=== PATIENT | male | born 1965 | race African-American/Black ===

== ENCOUNTER 2019-03-04 13:16 | Day surgery (SDC) | payer OTHER ==
--- NOTE | 2019-03-04 13:25 | PDOC ---
Rapid Medical Evaluation Time Seen by Provider: 03/04/19 13:19 Medical Evaluation: 03/04/19 13:21 I have performed a brief in-person evaluation of this patient. The patient presents with a chief complaint of: ESRD on HD (M/W/F), was unable to get HD this am 2 ? clotted LUE graft Renal doc: Dr Soria ([place]), gets HD at [address] [place] [address] Pertinent physical exam findings:Stable, pedro well I have ordered the following:labs The patient will proceed to the ED for further evaluation. Discharge Disposition - Diagnosis AV graft malfunction Qualifiers: Encounter type: initial encounter Qualified Code(s): T82.590A - Other mechanical complication of surgically created arteriovenous fistula, initial encounter - Referrals - Patient Instructions - Post Discharge Activity
--- NOTE | 2019-03-04 14:31 | HP ---
<Bijal Rodriguez - Last Filed: 03/04/19 16:08> Admitting History and Physical - Primary Care Physician PCP: Anthony Hunt - Admission Chief Complaint: clotted Left AVF History of Present Illness: 53yo male with ESRD on HD (M,W,F) presents to the ED for evaluation of his left UE clotted AVF. The patient reports he was unable to undergo dialysis at his last session as a result of low flow. He presented to Dr Burns's office today where he underwent a procedure to improve the flow, however, this was unsuccessful and subsequently he was sent to the ED for admission and surgery later today. The patient states he follows with his PCP on a regular basis and denies any recent injuries to the left arm. He denies any CP, SOB, N/V /D, fever or chills. He has been NPO since 10:30 last night. History Source: Patient Limitations to Obtaining History: No Limitations - Past Medical History SHIRT MAKER: No: Alzheimer's, CVA, Dementia, Migraine, Multiple Sclerosis, Peripheral Neuropathy, Parkinson's, Seizure, Syncope, TIA, Vertigo, Other Cardiovascular: Yes: HTN Pulmonary: No: Asthma, Bronchitis, Cancer, COPD, O2 Dependent, Pneumonia, Previously Intubated, Pulmonary Embolus, Pulmonary Fibrosis, Sleep Apnea, Other Gastrointestinal: No: Ascites, Cancer, Constipation, Crohn's Disease, Diverticulitis, Diverticulosis, Esophageal Varices, Gastritis, GERD, GI Bleed, Hemorrhoids, Hiatal Hernia, Inflamatory Bowel Disease, Irritable Bowel Disease, Pancreatitis, Peptic Ulcer Disease, Ulcerative Colitis, Other Hepatobiliary: No: Cirrhosis, Cholelithiasis, Cholecystitis, Choledocholithiasis , Hepatitis A, Hepatitis B, Hepatitis C, Other Renal/: Yes: Renal Failure (on HD (M,W,F)) Heme/Onc: No: Anemia, B12 Deficiency, Bleeding Disorder, Cancer, Current Chemotherapy, Current Radiation Therapy, Hemochromatosis, Hypercoaguable State, Myeloproliferative Synd, Sickle Cell Disease, Sickle Cell Trait, Thrombocytopenia, Other - Smoking History Smoking history: Never smoked - Alcohol/Substance Use Hx Alcohol Use: No Home Medications - Allergies Allergies/Adverse Reactions: Allergies Allergy/AdvReac Type Severity Reaction Status Date / Time No Known Allergies Allergy Unverified 03/04/19 14:43 - Home Medications Home Medications: Ambulatory Orders Amlodipine Besylate 10 mg PO DAILY 03/04/19 Carvedilol 12.5 mg PO DAILY 03/04/19 Furosemide 60 mg PO DAILY 03/04/19 Isosorbide Mononitrate [Isosorbide Mononitrate ER] 30 mg PO DAILY 03/04/19 Sevelamer Carbonate [Renvela] 800 mg NR TID 03/04/19 Review of Systems - Review of Systems Constitutional: reports: No Symptoms Eyes: reports: Blurred Vision, Other (hx of Right retinal detatchment, hx of cataracts) HENT: reports: No Symptoms Neck: reports: No Symptoms Cardiovascular: reports: No Symptoms Respiratory: reports: No Symptoms Gastrointestinal: reports: No Symptoms Genitourinary: reports: No Symptoms Breasts: reports: No Symptoms Reported Musculoskeletal: reports: No Symptoms Integumentary: reports: No Symptoms Neurological: reports: No Symptoms Endocrine: reports: Other (NIDDM-diet controlled) Hematology/Lymphatic: reports: No Symptoms Psychiatric: reports: No Symptoms Pain Intensity: 2 Physical Examination Vital Signs: Vital Signs Temperature 97.5 F L 03/04/19 13:22 Pulse Rate 76 03/04/19 13:22 Respiratory Rate 20 03/04/19 13:22 Blood Pressure 155/105 H 03/04/19 13:22 O2 Sat by Pulse Oximetry (%) 100 03/04/19 13:22 Constitutional: Yes: Well Nourished, No Distress, Calm Eyes: Yes: Sclera Icterus HENT: Yes: Atraumatic, Normocephalic Neck: Yes: Trachea Midline Cardiovascular: Yes: Regular Rate and Rhythm, S1, S2 Respiratory: Yes: CTA Bilaterally Gastrointestinal: Yes: Soft ...Rectal Exam: Yes: Deferred Renal/: Yes: WNL Breast(s): Yes: WNL Musculoskeletal: Yes: WNL (left UE AVF at volar forearm, with well healed scars , palpable thrill- diminished proximally, no bruit, +2 radial and ulnar pulses, arm and hand well perfused and warm to touch, Full ROM at left elbow, wrist and fingers) Edema: No Peripheral Pulses WNL: Yes Peripheral Pulses: Left Radial: 2+, Left Doralis Pedis: 2+ Integumentary: Yes: WNL Neurological: Yes: Alert, Oriented ...Motor Strength: LUE Psychiatric: Yes: Alert, Oriented Imaging - Results EKG: Pending Problem List - Problems (1) AV graft malfunction Assessment/Plan: 53yo male with clotted Left AVF. Plan for OR today with Dr Burns for left UE AVF revision/thrombectomy. 1) NPO for OR today 2) f/u pre-op labs, EKG 3) T&S Evaluation and plan discussed with Dr Burns Code(s): T82.590A - [facility] COMPL OF SURGICALLY CREATED ARTERIOVENOUS FISTULA, INIT Qualifiers: Encounter type: initial encounter Qualified Code(s): T82.590A - Other mechanical complication of surgically created arteriovenous fistula, initial encounter Visit type - Emergency Visit Emergency Visit: Yes Care time: The patient presented to the Emergency Department on the above date and was hospitalized for further evaluation of their emergent condition. - New Patient This patient is new to me today: Yes Date on this admission: 03/04/19 - Critical Care Critical Care patient: No <Bryce Burns - Last Filed: 03/05/19 12:25> Physical Examination Vital Signs: Vital Signs Temperature 98.7 F 03/05/19 11:00 Pulse Rate 92 H 03/05/19 11:35 Respiratory Rate 18 03/05/19 11:35 Blood Pressure 180/102 H 03/05/19 11:35 O2 Sat by Pulse Oximetry (%) 100 03/05/19 03:50 Labs: CBC, BMP 03/04/19 15:05 03/05/19 11:13 Assessment/Plan Partial thrombosis of lef arm fistula. Office venoplasty of occluded outflow venous drainage with dislodgment of clot into vein. Plan thrombectomy and revision of venous outflow.
--- NOTE | 2019-03-04 14:40 | PDOC ---
History of Present Illness - General Chief Complaint: Dialysis Shunt Problem Stated Complaint: SICK Time Seen by Provider: 03/04/19 13:19 History Source: Patient Exam Limitations: No Limitations - History of Present Illness Initial Comments: 53 yo M history ESRD on HD MWF presents to ED for clotted AVF to L forearm. He was unable to get dialysis as a result. Dr. Burns attempted to fix it in the office today, but was unsuccessful. Sent by Dr. Burns for OR to repair. HD has been rescheduled for tomorrow. He denies SOB, leg swelling. Last ate last night. Past History - Past Medical History Allergies/Adverse Reactions: Allergies Allergy/AdvReac Type Severity Reaction Status Date / Time No Known Allergies Allergy Unverified 03/04/19 14:43 Cancer: No Cardiac Disorders: No COPD: No CHF: No Diabetes: Yes (NIDDM) Dialysis: Yes Disorders: Yes (ESRD) HTN: Yes - Suicide/Smoking/Psychosocial Hx Smoking History: Never smoked Information on smoking cessation initiated: No Hx Alcohol Use: No Drug/Substance Use Hx: No Review of Systems - Review of Systems Able to Perform ROS?: Yes Comments:: GENERAL/CONSTITUTIONAL: No fever or chills. No weakness. HEAD, EYES, EARS, NOSE AND THROAT: No change in vision. No ear pain or discharge. No sore throat. CARDIOVASCULAR: No chest pain or shortness of breath. RESPIRATORY: No cough, wheezing, or hemoptysis. GASTROINTESTINAL: No nausea, vomiting, diarrhea or constipation. GENITOURINARY: No dysuria, frequency, or change in urination. MUSCULOSKELETAL: No joint or muscle swelling or pain. No neck or back pain. SKIN: No rash. NEUROLOGIC: No headache, vertigo, loss of consciousness, or change in strength/ sensation. ENDOCRINE: No increased thirst. No abnormal weight change. HEMATOLOGIC/LYMPHATIC: No anemia, easy bleeding, or history of blood clots. ALLERGIC/IMMUNOLOGIC: No hives or skin allergy. *Physical Exam - Vital Signs Last Vital Signs Temp Pulse Resp BP Pulse Ox 97.5 F L 76 20 155/105 H 100 03/04/19 13:22 03/04/19 13:22 03/04/19 13:22 03/04/19 13:22 03/04/19 13:22 - Physical Exam Comments: GENERAL: Awake, alert, and fully oriented, in no acute distress HEAD: No signs of trauma EYES: PERRLA, EOMI, sclera anicteric, conjunctiva clear ENT: Auricles normal inspection, hearing grossly normal, nares patent, oropharynx clear without exudates. Moist mucosa NECK: Normal ROM, supple, no lymphadenopathy, JVD, or masses LUNGS: Breath sounds equal, clear to auscultation bilaterally. No wheezes, and no crackles HEART: Regular rate and rhythm, normal S1 and S2, no murmurs, rubs or gallops ABDOMEN: Soft, nontender, normoactive bowel sounds. No guarding, no rebound. No masses EXTREMITIES: L forearm AV graft +thrill, no bruit appreciated. Remainder of extremities with normal range of motion, no edema. No clubbing or cyanosis. No cords, erythema, or tenderness NEUROLOGICAL: Cranial nerves II through XII grossly intact. Normal speech, normal gait. Motor and sensation intact SKIN: Warm, dry, normal turgor, no rashes or lesions noted. Heart Score/ECG Review - ECG Impressions Comment:: EKG read 14:20- NSR 75 bpm, +inv T waves I, aVL. +LVH. Medical Decision Making - Medical Decision Making 03/04/19 14:[address] Burns for admission. Preop labs ordered. Will keep patient NPO. *DC/Admit/Observation/Transfer Diagnosis at time of Disposition: AV graft malfunction Qualifiers: Encounter type: initial encounter Qualified Code(s): T82.590A - Other mechanical complication of surgically created arteriovenous fistula, initial encounter - Discharge Dispostion Condition at time of disposition: Stable Decision to Admit order: Yes - Referrals Referrals: Anthony Hunt [Primary Care Provider] - - Patient Instructions - Post Discharge Activity
[2019-03-04 15:20] LABS: BASO % 1.2 % (0-2.0); EOS % 2.6 % (0-4.5); HEMATOCRIT 39.4 % (35.4-49); HEMOGLOBIN 13.3 GM/dL (11.7-16.9); LYMPH % 27.7 % (8-40); MCH 31.6 pg (25.7-33.7); MCHC 33.9 g/dl (32.0-35.9); MEAN CELL VOLUME 93.3 fl (80-96); MEAN PLT VOLUME 8.5 fl (7.5-11.1); NEUT % 61.5 % (42.8-82.8); PLATELET COUNT 267 K/MM3 (134-434); RBC 4.23 M/mm3 (4.00-5.60); RDW 15.6 % (11.9-15.9); WHITE BLOOD COUNT 7.5 K/mm3 (4.0-10.0)
[2019-03-04 15:32] LABS: INR 0.94 (0.83-1.09); PROTHROMBIN TIME (PATIENT) 11.1 SEC (9.7-13.0)
[2019-03-04 15:58] LABS: ALBUMIN 3.8 g/dl (3.4-5.0); BILIRUBIN,TOTAL 0.4 mg/dL (0.2-1); BLOOD UREA NITROGEN 40.9 mg/dL (7-18); CALCIUM 9.6 mg/dL (8.5-10.1); POTASSIUM 5.2 mmol/L (3.5-5.1); TOT PROT 7.9 g/dl (6.4-8.2)
[2019-03-04 16:28] LABS: CREATININE 8.9 mg/dL (0.55-1.3)
[2019-03-04 18:08] VITALS: BMI 25.4
[2019-03-04] MEDS ORDERED: METOPROLOL TARTRATE 5 MG/5 ML VIAL IVPB ONE ×2 (18:27→22:47)
[2019-03-04] MEDS ORDERED: LIDOCAINE HCL 1%, 10 MG/ML (20ML VIAL) ONE (19:30)
[2019-03-04] MEDS ORDERED: PAPAVERINE HCL 30 MG/1 ML 10 ML VIAL NR ONE (19:30)
[2019-03-04] MEDS ORDERED: HEPARIN NA (PORCINE) 5,000 UNITS/ML 1ML VIAL ONE (19:30)
[2019-03-04] MEDS ORDERED: ONDANSETRON 4 MG/2 ML VIAL IVPUSH PRN ×2 (19:50→22:47)
[2019-03-04] MEDS ORDERED: oxyCODONE HCL 5 MG TABLET PO PRN ×4 (19:50→22:47)
[2019-03-04] MEDS ORDERED: SODIUM CHLORIDE 1,000 ML IV SCH ×2 (20:00→22:47)
[2019-03-04] MEDS ORDERED: PROPOFOL 20 ML ONE ×3 (20:02→21:52)
[2019-03-04] MEDS ORDERED: MIDAZOLAM HCL 2 MG/2 ML SINGLE DOSE VIAL ONE (20:02)
[2019-03-04] MEDS ORDERED: LIDOCAINE HCL/PF 2% SDV 5ML VIAL ONE (20:02)
[2019-03-04] MEDS ORDERED: LIDOCAINE HCL 1%, 10 MG/ML (50 mL VIAL) IJ ONE (20:21)
[2019-03-04] MEDS ORDERED: POVIDONE-IODINE OINTMENT 10% - 28.4 GM TUBE ONE (21:28)
--- NOTE | 2019-03-04 22:06 | OP ---
Operative Note - Note: Operative Date: 03/04/19 Pre-Operative Diagnosis: Thrombosed AV fistula Operation: Revision AV fistula with thrombectomy left arm Findings: Cephalic vein fistula with occluded outflow in proximal forearm. Thrombus in fistula with partial occlusion. Patent brachial vein Post-Operative Diagnosis: Same as Pre-op Surgeon: Bryce Burns Anesthesiologist/RECREATION THERAPY TEACHER: Staci Serrato Anesthesia: Fractional Specimens Removed: Thrombus Estimated Blood Loss (mls): 30
[2019-03-05] MEDS ORDERED: SODIUM CHLORIDE 250 ML IV PRN (10:01)
[2019-03-05] MEDS ORDERED: HEPARIN NA (PORCINE) 5,000 UNITS/ML 1ML VIAL IVPUSH ONE (10:01)
[2019-03-05 11:40] LABS: BLOOD UREA NITROGEN 46.5 mg/dL (7-18); POTASSIUM 4.1 mmol/L (3.5-5.1)
[2019-03-05 11:42] LABS: CREATININE 9.5 mg/dL (0.55-1.3)
[2019-03-05] MEDS: HEPARIN NA (PORCINE) 5,000 UNITS/ML 1ML VIAL IVPUSH SCH ×3 (12:05→14:08)
--- NOTE | 2019-03-05 12:23 | PN ---
Progress Note (short form) - Note Progress Note: ON HD at 350 cc/min flow No problems No arm swelling OK for discharge home.
--- NOTE | 2019-03-05 12:33 | CONSULT ---
Consult - text type - Consultation Consultation Note: Renal Consult for ESRD on HD This is a 53 year old gentleman with history of ESRD on HD, Hypertension, DM who presented with non-functioning AVF. S/p Venoplast and vein anastamosis by vascular surgery yesterday. Last outpatient dialysis was Thursday. Feels well. denies any CP, Abd pain, SOB, N/V/D. AVF functioning well on dialysis today. PMhx: as above Allergies: NKDA Family Hx: NC Social Hx: No T/A/D ROS: as per HPI, all other pertinent ros negative Home Medications Medication Instructions Recorded Amlodipine Besylate 10 mg PO DAILY 03/04/19 Carvedilol 12.5 mg PO DAILY 03/04/19 Furosemide 60 mg PO DAILY 03/04/19 Isosorbide Mononitrate [Isosorbide 30 mg PO DAILY 03/04/19 Mononitrate ER] Sevelamer Carbonate [Renvela] 800 mg NR TID 03/04/19 Vital Signs Temperature 98.7 F 03/05/19 11:00 Pulse Rate 92 H 03/05/19 11:35 Respiratory Rate 18 03/05/19 11:35 Blood Pressure 180/102 H 03/05/19 11:35 O2 Sat by Pulse Oximetry (%) 100 03/05/19 03:50 Intake & Output 03/02/19 03/03/19 03/04/19 03/05/19 23:59 23:59 23:59 23:59 Intake Total 400 Output Total 20 Balance 380 Weight 80.422 kg NAD awake and alert RRR CTA soft NT/ND Noo LE edema left arm AVF CBC, BMP 03/04/19 15:05 03/05/19 11:13 Current Medications Fentanyl (Sublimaze Injection -) 50 mcg IVPUSH [id number] PRN PRN Reason: PAIN-PACU ORDER X 4 DOSES ONLY Sodium Chloride (Normal Saline -) 250 mls @ 3,000 mls/hr IV PRN PRN PRN Reason: Hypotension during Dialysis Stop: 03/06/19 10:01 Ondansetron HCl (Zofran Injection) 4 mg IVPUSH Q6H PRN PRN Reason: NAUSEA AND/OR VOMITING Oxycodone HCl (Roxicodone -) 5 mg PO Q4H PRN PRN Reason: PAIN LEVEL 1-5 Stop: 03/05/19 19:49 Oxycodone HCl (Roxicodone -) 10 mg PO Q4H PRN PRN Reason: PAIN LEVEL 6-10 Stop: 03/05/19 19:49 53 year old gentleman with history of ESRD on HD, Hypertension , DM who presented with non-functioning AVF. #ESRD on HD #Non-functiong AVF #Hypertension #DM not on meds tolerating dialysis well this afternoon via surgically repaired AVF. Would give antihypertensives after dialysis. Can be discharged after treatment and resume regular MWF HD schedule as outpatient Thank you Yordy Yates DO
[2019-03-05] MEDS ORDERED: CARVEDILOL 12.5 MG TABLET (FP) PO SCH (12:45)
[2019-03-05] MEDS ORDERED: amLODIPine BESYLATE 10 MG TABLET (FP) PO SCH (12:45)
[2019-03-05 16:10] VITALS: BP 142/90; PULSE 98; TEMP 98.8
--- NOTE | 2019-03-05 16:47 | OP ---
DATE OF OPERATION: 03/04/2019 SURGEON: Bryce Burns MD PROCEDURE PERFORMED: Revision of left arm arteriovenous fistula with thrombectomy. PREOPERATIVE DIAGNOSIS: Thrombosis and complication of left arm arteriovenous fistula. POSTOPERATIVE DIAGNOSIS: Thrombosis and complication of left arm arteriovenous fistula. ANESTHESIA: Fractional. ANESTHESIOLOGIST: Staci Serrato MD OPERATIVE FINDINGS: The radiocephalic fistula was patent distally. The venous outflow in the proximal forearm was occluded, with only collateral flow to the deep veins. There was thrombus within the fistula as well. OPERATIVE PROCEDURE: Following routine patient identification, with site and side verification, intravenous sedation was established. The left arm was prepped with ChloraPrep. A time-out was performed. Lidocaine 1% was infiltrated in the skin over the proximal aspect of the patent section of the fistula in the forearm. A longitudinal skin incision was made and carried down through the subcutaneous tissues using cautery for hemostasis. The vein was mobilized and secured with a vessel loop. Small side branches were ligated. The deep branches were dissected down through the deep fascia of the arm. The proximal outflow vein was then exposed by extension of the proximal portion of the incision. The vein was largely thrombosed. It was ligated proximally. The wound was deepened in the proximal aspect until the brachial artery was identified and the adjacent brachial vein was seen, which appeared to be of adequate diameter for the venous outflow. This was carefully dissected and the side branches were ligated and divided. All branches of the deep section of the fistula were then divided, and this deep branch was used for the anastomosis. The fistula was occluded distally with a clamp and amputated off the deep vein. Thrombus within this section of the vein was removed directly, and a number 4 Julianne catheter was passed proximally, with removal of a small amount of additional thrombus. There was good inflow. The vein was filled with heparin solution and was reoccluded with the clamp. The brachial vein was then opened with a longitudinal venotomy measuring approximately 1 cm. The vein was flushed easily with heparin solution. The 2 veins were then anastomosed in an end-to-side fashion using a running suture of 6-0 Prolene. Prior to completion of the suture line, the fistula was again allowed to flush. During the procedure, the patient received 3000 units of heparin intravenously. The suture line was completed, and the vessels were released. There was good flow through the anastomosis. Bleeding from the suture line was controlled with Surgicel. The wound was then irrigated and closed with interrupted sutures of 3-0 Vicryl and skin ariela. Sterile dressings were applied, and the patient was taken to the recovery room in stable condition. Gricel VAZQUEZ/[id number]
--- NOTE | 2019-03-06 00:05 | EKG ---
Test Reason : Blood Pressure : / mmHG Vent. Rate : 087 BPM Atrial Rate : 087 BPM P-R Int : 176 ms QRS Dur : 086 ms QT Int : 390 ms P-R-T Axes : 050 -41 101 degrees QTc Int : 469 ms NORMAL SINUS RHYTHM LEFT AXIS DEVIATION INFERIOR INFARCT , AGE UNDETERMINED ABNORMAL ECG WHEN COMPARED WITH ECG OF 04-MAR-2019 13:25, NO SIGNIFICANT CHANGE WAS FOUND Confirmed by CLAU VALDEZ, SRIRAM ([id number]) on 03/06/2019 12:05:25 AM Referred By: DR. SNYDER Confirmed By:SRIRAM OLGUIN MD
--- NOTE | 2019-03-06 00:12 | EKG ---
Test Reason : Blood Pressure : / mmHG Vent. Rate : 075 BPM Atrial Rate : 075 BPM P-R Int : 172 ms QRS Dur : 088 ms QT Int : 418 ms P-R-T Axes : 051 -37 089 degrees QTc Int : 466 ms NORMAL SINUS RHYTHM POSSIBLE LEFT ATRIAL ENLARGEMENT LEFT AXIS DEVIATION LEFT VENTRICULAR HYPERTROPHY ABNORMAL ECG NO PREVIOUS ECGS AVAILABLE Confirmed by SRIRAM OLGUIN MD ([id number]) on 03/06/2019 12:12:05 AM Referred By: Confirmed By:SRIRAM OLGUIN MD
== END 2019-03-05 16:30 | disposition home or self-care (01) ==
LOC: JOR 13:16 → JASUSAT 14:40 → J5S 17:45 → JASUSAT 17:45 → J5S 18:06 → JASUSAT 03-05 16:30
PROVIDERS: ATTEND Surgery
PROC: 03180ZD Bypass Left Brachial Artery to Upper Arm Vein, Open Approach (ICD-10-PCS; 2019-03-04)
PROC: 03CC3ZZ Extirpation of Matter from Left Radial Artery, Percutaneous Approach (ICD-10-PCS; principal; 2019-03-04 17:45)
DX: T82.868A Thrombosis due to vascular prosthetic devices, implants and grafts, initial encounter (principal); I12.0 Hypertensive chronic kidney disease with stage 5 chronic kidney disease or end stage renal disease; E13.22 Other specified diabetes mellitus with diabetic chronic kidney disease; N18.6 End stage renal disease; Z99.2 Dependence on renal dialysis
CPT/HCPCS: 36415; 80048; 80053; 85025; 85610; 86803; 86850; 86900; 86901; 87340; 93005; 93010; 94760; 99284-25; J1644

== ENCOUNTER 2019-03-11 10:09 | Day surgery (SDC) | payer OTHER ==
[2019-03-11 10:15] VITALS: BMI 26.4
[2019-03-11 11:41] LABS: BASO % 1.6 % (0-2.0); EOS % 2.2 % (0-4.5); HEMATOCRIT 33.8 % (35.4-49); HEMOGLOBIN 11.6 GM/dL (11.7-16.9); MCH 31.5 pg (25.7-33.7); MCHC 34.4 g/dl (32.0-35.9); MEAN CELL VOLUME 91.8 fl (80-96); MEAN PLT VOLUME 8.5 fl (7.5-11.1); MONO % 9.1 % (3.8-10.2); NEUT % 63.1 % (42.8-82.8); PLATELET COUNT 268 K/MM3 (134-434); RBC 3.69 M/mm3 (4.00-5.60); RDW 15.1 % (11.9-15.9); WHITE BLOOD COUNT 8.7 K/mm3 (4.0-10.0)
--- NOTE | 2019-03-11 11:46 | PDOC ---
Attending Attestation - Resident Resident Name: Yuni Adams - ED Attending Attestation I have performed the following: I have examined & evaluated the patient, The case was reviewed & discussed with the resident, I agree w/resident's findings & plan, Exceptions are as noted - HPI HPI: 03/11/19 12:33 53 year old male with past medical history of HTN, DM, ESRD on M/W/F dialysis sent from dialysis clinic for clogged fistula on LUE. Recently had a revision about 6 days ago. Two days ago, pt had a normal session of dialysis. Today, attempted to dialyze the patient, but unable to do so. Pt has no complaints at this time. Pt's surgeon is Dr. Castro. - Physicial Exam PE: 03/11/19 12:40 GENERAL: Awake, alert, and fully oriented, in no acute distress HEAD: No signs of trauma EYES: EOMI, sclera anicteric, conjunctiva clear ENT: Auricles normal inspection, hearing grossly normal, nares patent NECK: Normal ROM, supple EXTREMITIES: Normal range of motion, no edema. LUE: Suraj noted in well healing surgical site in LUE. AV fisulta with no palpable thrill. NEUROLOGICAL: Cranial nerves II through XII grossly intact. Normal speech, normal gait SKIN: Warm, Dry, normal turgor, no rashes or lesions noted. - Medical Decision Making 03/11/19 12:41 Vital Signs Temp Pulse Resp BP Pulse Ox 97.6 F 86 16 165/100 100 03/11/19 10:13 03/11/19 10:13 03/11/19 10:13 03/11/19 10:13 03/11/19 10:13 Impression: clotted AV fistula. Dr. Adams had consulted Dr. Jerome. Admit for AV fistula repair. Heart Score/ECG Review #1 ECG reviewed & interpreted by me at: 11:30 03/11/19 11:45 NSR 86, no std/edin, left axis deviation, TWI aVL, no std/edin, QTC 476 msec
[2019-03-11 11:55] LABS: INR 1.01 (0.83-1.09); PROTHROMBIN TIME (PATIENT) 11.9 SEC (9.7-13.0)
--- NOTE | 2019-03-11 11:58 | PDOC ---
History of Present Illness - General Chief Complaint: Dialysis Shunt Problem Stated Complaint: SENT BY PCP Time Seen by Provider: 03/11/19 11:11 - History of Present Illness Initial Comments: Alonso iSngh is a 53yo man with a PMH of HTN, DM, ESRD on HD (MWF) who presents with a clotted LUE fistula today; he was seen with the same complaint last week. He reports that he had the fistula revised last Thursday, and it was successfully used for dialysis on Thursday and Thursday. Today, the dialysis center was unabel to access the fistula. Mr Singh also reports that it feels hard, which it did not previously. He is not sure whether it was similarly firm yesterday as he did not check it. Mr Singh otherwise denies any complaints including changes in medication, fevers, drainage or bleeding from his surgical site, numbness or tingling in his fingers, or any other recent problems. Past History - Past Medical History Allergies/Adverse Reactions: Allergies Allergy/AdvReac Type Severity Reaction Status Date / Time No Known Allergies Allergy Verified 03/11/19 10:15 Home Medications: Ambulatory Orders Amlodipine Besylate 10 mg PO DAILY 03/04/19 Carvedilol 12.5 mg PO DAILY 03/04/19 Furosemide 60 mg PO DAILY 03/04/19 Isosorbide Mononitrate [Isosorbide Mononitrate ER] 30 mg PO DAILY 03/04/19 Sevelamer Carbonate [Renvela] 800 mg NR TID 03/04/19 Anemia: No Asthma: No Cancer: No Cardiac Disorders: No CVA: No COPD: No CHF: No Dementia: No Diabetes: Yes (NIDDM) Dialysis: Yes (M,W,F) GI Disorders: No Disorders: Yes (ESRD) HTN: Yes Hypercholesterolemia: No Liver Disease: No Seizures: No Thyroid Disease: No - Surgical History Abdominal Surgery: No Appendectomy: No Cardiac Surgery: No Cholecystectomy: No Lung Surgery: No Neurologic Surgery: No Orthopedic Surgery: (R TIBIA+FIBULA FX) - Suicide/Smoking/Psychosocial Hx Smoking History: Current every day smoker Information on smoking cessation initiated: No Hx Alcohol Use: No Drug/Substance Use Hx: No Substance Use Type: None Hx Substance Use Treatment: No Review of Systems - Review of Systems Comments:: General: No fevers, no chills, no weight or appetite change, no malaise HEENT: No changes in vision, no changes in hearing, no congestion, no sore throat CV: No chest pain, no palpitations, no LE edema Pulm: No SOB, no cough, no wheezing GI: No nausea or vomiting, no change in bowel habits, no melena : No frequency, no urgency, no dysuria Musc: No back pain, no joint swelling, no recent injury Skin: No rash, no lesions, no erythema Endo: No excessive thirst, no heat/cold intolerance Heme: No unusual bruising or bleeding, no swollen glands Neuro: No syncope, no numbness/tingling, no focal weakness Vasc: No claudication Psych: No recent change in mood, no SI or HI *Physical Exam - Vital Signs Last Vital Signs Temp Pulse Resp BP Pulse Ox 97.6 F 86 16 165/100 100 03/11/19 10:13 03/11/19 10:13 03/11/19 10:13 03/11/19 10:13 03/11/19 10:13 - Physical Exam Comments: General: Comfortable, no acute distress HEENT: PERRL, EOMI, MMM, voice normal, normal neck ROM, no LAD Cards: RRR, no murmur appreciated Pulm: Comfortable on room air, clear to auscultation bilaterally Abd: Soft, nontender, nondistended Ext: Atraumatic. No LE edema. ROM intact. Strength 5/5 and equal bilaterally Vasc: Extremities WWP. Palpable radial and pedal pulses bilaterally Skin: Normal color, no rashes or lesions Neuro: A&Ox3, CN grossly intact, normal speech, motor/sensory grossly intact and symmetric Psych: Mood appropriate to situation ED Treatment Course - LABORATORY CBC & Chemistry Diagram: 03/11/19 11:20 03/11/19 11:20 - ADDITIONAL ORDERS Additional order review: 03/11/19 11:20 RBC 3.69 L MCV 91.8 MCHC 34.4 RDW 15.1 MPV 8.5 Neutrophils % 63.1 Lymphocytes % 24.0 Monocytes % 9.1 Eosinophils % 2.2 Basophils % 1.6 Medical Decision Making - Medical Decision Making 03/11/19 11:54 Alonso Singh is a 53yo man with a PMH of HTN, DM, ESRD on HD (MWF) who presents with a clotted LUE fistula today; he was seen with the same complaint last week. He reports that he had the fistula revised last Thursday, and it was successfully used for dialysis on Thursday and Thursday. Today, the dialysis center was unabel to access the fistula. Mr Singh also reports that it feels hard, which it did not previously. He is not sure whether it was similarly firm yesterday as he did not check it. Mr Singh otherwise denies any complaints including changes in medication, fevers, drainage or bleeding from his surgical site, numbness or tingling in his fingers, or any other recent problems. - L AVF firm, no thrill, likely thrombosed - Call to Dr Burns - CBC, CMP, coags, EKG for likely intervention 03/11/19 12:26 - Spoke to Dr Burns. Plans to take for de-clot today, will admit to satellite - Labs pending - Called surgical PA service regarding admission 03/11/19 12:28 - Surgical PA at bedside for admission Discussed with Dr Okeefe. Yuni Adams PGY2 *DC/Admit/Observation/Transfer Diagnosis at time of Disposition: AV graft malfunction Qualifiers: Encounter type: subsequent encounter Qualified Code(s): T82.590D - Other mechanical complication of surgically created arteriovenous fistula, subsequent encounter - Discharge Dispostion Decision to Admit order: Yes - Referrals - Patient Instructions - Post Discharge Activity
[2019-03-11 12:27] LABS: ALBUMIN 3.6 g/dl (3.4-5.0); BILIRUBIN,TOTAL 0.5 mg/dL (0.2-1); BLOOD UREA NITROGEN 46.5 mg/dL (7-18); CALCIUM 9.4 mg/dL (8.5-10.1); POTASSIUM 4.4 mmol/L (3.5-5.1); TOT PROT 7.5 g/dl (6.4-8.2)
[2019-03-11 12:34] LABS: CREATININE 8.7 mg/dL (0.55-1.3)
--- NOTE | 2019-03-11 13:49 | HP ---
CHIEF COMPLAINT: PCP: HISTORY OF PRESENT ILLNESS: ER course was notable for: (1) (2) (3) Recent Travel: PAST MEDICAL HISTORY: PAST SURGICAL HISTORY: Social History: Smoking: Alcohol: Drugs: Family History: Allergies No Known Allergies Allergy (Verified 03/11/19 10:15) HOME MEDICATIONS: Home Medications Medication Instructions Recorded Amlodipine Besylate 10 mg PO DAILY 03/04/19 Carvedilol 12.5 mg PO DAILY 03/04/19 Furosemide 60 mg PO DAILY 03/04/19 Isosorbide Mononitrate [Isosorbide 30 mg PO DAILY 03/04/19 Mononitrate ER] Sevelamer Carbonate [Renvela] 800 mg NR TID 03/04/19 REVIEW OF SYSTEMS CONSTITUTIONAL: Absent: fever, chills, diaphoresis, generalized weakness, malaise, loss of appetite, weight change HEENT: Absent: rhinorrhea, nasal congestion, throat pain, throat swelling, difficulty swallowing, mouth swelling, ear pain, eye pain, visual changes CARDIOVASCULAR: Absent: chest pain, syncope, palpitations, irregular heart rate, lightheadedness , peripheral edema RESPIRATORY: Absent: cough, shortness of breath, dyspnea with exertion, orthopnea, wheezing, stridor, hemoptysis GASTROINTESTINAL: Absent: abdominal pain, abdominal distension, nausea, vomiting, diarrhea, constipation, melena, hematochezia GENITOURINARY: Absent: dysuria, frequency, urgency, hesitancy, hematuria, flank pain, genital pain MUSCULOSKELETAL: Absent: myalgia, arthralgia, joint swelling, back pain, neck pain SKIN: Absent: rash, itching, pallor HEMATOLOGIC/IMMUNOLOGIC: Absent: easy bleeding, easy bruising, lymphadenopathy, frequent infections ENDOCRINE: Absent: unexplained weight gain, unexplained weight loss, heat intolerance, cold intolerance NEUROLOGIC: Absent: headache, focal weakness or paresthesias, dizziness, unsteady gait, seizure, mental status changes, bladder or bowel incontinence PSYCHIATRIC: Absent: anxiety, depression, suicidal or homicidal ideation, hallucinations. PHYSICAL EXAMINATION Vital Signs - 24 hr 03/11/19 03/11/19 10:13 13:06 Temperature 97.6 F Pulse Rate 86 Pulse Rate [ 86 Radial] Respiratory 16 20 Rate Blood Pressure 165/100 Blood Pressure 148/99 [Right Arm] O2 Sat by Pulse 100 100 Oximetry (%) GENERAL: Awake, alert, and fully oriented, in no acute distress. HEAD: Normal with no signs of trauma. EYES: Pupils equal, round and reactive to light, extraocular movements intact, sclera anicteric, conjunctiva clear. No lid lag. EARS, NOSE, THROAT: Ears normal, nares patent, oropharynx clear without exudates. Moist mucous membranes. NECK: Normal range of motion, supple without lymphadenopathy, JVD, or masses. LUNGS: Breath sounds equal, clear to auscultation bilaterally. No wheezes, and no crackles. No accessory muscle use. HEART: Regular rate and rhythm, normal S1 and S2 without murmur, rub or gallop. ABDOMEN: Soft, nontender, not distended, normoactive bowel sounds, no guarding, no rebound, no masses. No hepatomegaly or splenomegaly. MUSCULOSKELETAL: Normal range of motion at all joints. No bony deformities or tenderness. No CVA tenderness. UPPER EXTREMITIES: 2+ pulses, warm, well-perfused. No cyanosis. No clubbing. No peripheral edema. LOWER EXTREMITIES: 2+ pulses, warm, well-perfused. No calf tenderness. No peripheral edema. NEUROLOGICAL: Cranial nerves II-XII intact. Normal speech. Normal gait. PSYCHIATRIC: Cooperative. Good eye contact. Appropriate mood and affect. SKIN: Warm, dry, normal turgor, no rashes or lesions noted, normal capillary refill. Laboratory Results - last 24 hr 03/11/19 03/11/19 03/11/19 11:20 11:20 11:20 WBC 8.7 RBC 3.69 L Hgb 11.6 L Hct 33.8 L MCV 91.8 MCH 31.5 MCHC 34.4 RDW 15.1 Plt Count 268 MPV 8.5 Absolute Neuts (auto) 5.5 Neutrophils % 63.1 Lymphocytes % 24.0 Monocytes % 9.1 Eosinophils % 2.2 Basophils % 1.6 Nucleated RBC % 0 PT with INR 11.90 INR 1.01 Sodium 137 Potassium 4.4 Chloride 99 Carbon Dioxide 28 Anion Gap 10 BUN 46.5 H Creatinine 8.7 H* Est GFR (CKD-EPI)AfAm 7.35 Est GFR (CKD-EPI)NonAf 6.35 Random Glucose 99 Calcium 9.4 Total Bilirubin 0.5 AST 12 L ALT 12 L Alkaline Phosphatase 86 Total Protein 7.5 Albumin 3.6 Blood Type Antibody Screen 07/26/19 11:20 WBC RBC Hgb Hct MCV MCH MCHC RDW Plt Count MPV Absolute Neuts (auto) Neutrophils % Lymphocytes % Monocytes % Eosinophils % Basophils % Nucleated RBC % PT with INR INR Sodium Potassium Chloride Carbon Dioxide Anion Gap BUN Creatinine Est GFR (CKD-EPI)AfAm Est GFR (CKD-EPI)NonAf Random Glucose Calcium Total Bilirubin AST ALT Alkaline Phosphatase Total Protein Albumin Blood Type A POSITIVE Antibody Screen Negative ASSESSMENT/PLAN:
--- NOTE | 2019-03-11 13:59 | CONSULT ---
<Juan Alberto Delgadillo - Last Filed: 03/11/19 13:52> - Consultation REQUESTING PROVIDER: CONSULT REQUEST: We have been asked to surgically evaluate this patient for Clotted AV graft PCP:Bryce Burns HISTORY OF PRESENT ILLNESS: 53yo M presented to the ED from his HD center after he was informed that his AV graft was clotted and not functioning. Pt was unable to get any dialysis today. Pt last HD was on Thursday. Pt denies any trauma or injury to his arm. PMHx: HTN, ESRD Home Medications Medication Instructions Recorded Amlodipine Besylate 10 mg PO DAILY 03/04/19 Carvedilol 12.5 mg PO DAILY 03/04/19 Furosemide 60 mg PO DAILY 03/04/19 Isosorbide Mononitrate [Isosorbide 30 mg PO DAILY 03/04/19 Mononitrate ER] Sevelamer Carbonate [Renvela] 800 mg NR TID 03/04/19 Allergies Allergy/AdvReac Type Severity Reaction Status Date / Time No Known Allergies Allergy Verified 03/11/19 10:15 REVIEW OF SYSTEMS: CONSTITUTIONAL: Absent: fever, chills, diaphoresis, generalized weakness, malaise, loss of appetite, weight change CARDIOVASCULAR: Absent: chest pain, syncope, palpitations, irregular heart rate, lightheadedness , peripheral edema RESPIRATORY: Absent: cough, shortness of breath, dyspnea with exertion, wheezing, stridor, hemoptysis PHYSICAL EXAM: GENERAL: Awake, alert, and fully oriented, in no acute distress. HEAD: Normal with no signs of trauma. EYES: PERRL, sclera anicteric, conjunctiva clear. NECK: Normal ROM, supple without lymphadenopathy, JVD, or masses. LUNGS: Clear to auscultation bilat anteriorly. No wheezes, and no crackles. No accessory muscle use. HEART: Regular rate and rhythm. No murmurs UPPER EXTREMITIES: 2+ pulses, warm, well-perfused. No cyanosis. Cap refill <2 seconds. No peripheral edema. Lt arm AV graft faint thrill, no edema or erythema NEUROLOGICAL: Normal speech, gait not observed. PSYCH: Cooperative. Good eye contact. Appropriate mood and affect. SKIN: Warm, dry, normal turgor, no rashes or lesions noted. Vital Signs Temperature 97.6 F 03/11/19 10:13 Pulse Rate 86 03/11/19 13:06 Respiratory Rate 20 03/11/19 13:06 Blood Pressure 148/99 03/11/19 13:06 O2 Sat by Pulse Oximetry (%) 100 03/11/19 13:06 Lab Results WBC 8.7 K/mm3 (4.0-10.0) 03/11/19 11:20 RBC 3.69 M/mm3 (4.00-5.60) L 03/11/19 11:20 Hgb 11.6 GM/dL (11.7-16.9) L 03/11/19 11:20 Hct 33.8 % (35.4-49) L 03/11/19 11:20 MCV 91.8 fl (80-96) 03/11/19 11:20 MCHC 34.4 g/dl (32.0-35.9) 03/11/19 11:20 RDW 15.1 % (11.9-15.9) 03/11/19 11:20 Plt Count 268 K/MM3 (134-434) 03/11/19 11:20 Sodium 137 mmol/L (136-145) 03/11/19 11:20 Potassium 4.4 mmol/L (3.5-5.1) 03/11/19 11:20 Chloride 99 mmol/L (98-107) 03/11/19 11:20 Carbon Dioxide 28 mmol/L (21-32) 03/11/19 11:20 Anion Gap 10 MMOL/L (8-16) 03/11/19 11:20 BUN 46.5 mg/dL (7-18) H 03/11/19 11:20 Creatinine 8.7 mg/dL (0.55-1.3) H* 03/11/19 11:20 Random Glucose 99 mg/dL (74-106) 03/11/19 11:20 Calcium 9.4 mg/dL (8.5-10.1) 03/11/19 11:20 Blood Type A POSITIVE 03/11/19 11:20 Antibody Screen Negative 03/11/19 11:20 INR 1.01 (0.83-1.09) 03/11/19 11:20 Problem List - Problems (1) AV graft malfunction Assessment/Plan: Plan - plan to bring pt to the OR for declot later today. - NPO -preop labs, ekg Case discussed with Dr. Echavarria who agrees with plan Code(s): T82.590A - [facility] COMPL OF SURGICALLY CREATED ARTERIOVENOUS FISTULA, INIT Qualifiers: Encounter type: subsequent encounter Qualified Code(s): T82.590D - Other mechanical complication of surgically created arteriovenous fistula, subsequent encounter <Bryce Burns - Last Filed: 03/11/19 23:06> - Consultation REQUESTING PROVIDER: CONSULT REQUEST: We have been asked to surgically evaluate this patient for ( specify). PCP:Bryce Burns HISTORY OF PRESENT ILLNESS: PMHx: PSHx: Home Medications Medication Instructions Recorded Amlodipine Besylate 10 mg PO DAILY 03/04/19 Carvedilol 12.5 mg PO DAILY 03/04/19 Furosemide 60 mg PO DAILY 03/04/19 Isosorbide Mononitrate [Isosorbide 30 mg PO DAILY 03/04/19 Mononitrate ER] Sevelamer Carbonate [Renvela] 800 mg NR TID 03/04/19 Allergies Allergy/AdvReac Type Severity Reaction Status Date / Time No Known Allergies Allergy Verified 03/11/19 10:15 REVIEW OF SYSTEMS: CONSTITUTIONAL: Absent: fever, chills, diaphoresis, generalized weakness, malaise, loss of appetite, weight change CARDIOVASCULAR: Absent: chest pain, syncope, palpitations, irregular heart rate, lightheadedness , peripheral edema RESPIRATORY: Absent: cough, shortness of breath, dyspnea with exertion, wheezing, stridor, hemoptysis GASTROINTESTINAL: Absent: abdominal pain, abdominal distension, nausea, vomiting, diarrhea, constipation, melena, hematochezia GENITOURINARY: Absent: dysuria, frequency, urgency, hesitancy, hematuria, flank pain, genital pain MUSCULOSKELETAL: Absent: myalgia, arthralgia, joint swelling, back pain, neck pain SKIN: Absent: rash, itching, pallor HEMATOLOGIC/IMMUNOLOGIC: Absent: easy bleeding, easy bruising, lymphadenopathy NEUROLOGIC: Absent: headache, focal weakness, paresthesias, dizziness, unsteady gait, seizure, mental status changes, bladder or bowel incontinence PSYCHIATRIC: Absent: anxiety, depression, suicidal or homicidal ideation, hallucinations. PHYSICAL EXAM: GENERAL: Awake, alert, and fully oriented, in no acute distress. HEAD: Normal with no signs of trauma. EYES: PERRL, sclera anicteric, conjunctiva clear. NECK: Normal ROM, supple without lymphadenopathy, JVD, or masses. LUNGS: Clear to auscultation bilat anteriorly. No wheezes, and no crackles. No accessory muscle use. HEART: Regular rate and rhythm. No murmurs ABDOMEN: Soft, nontender, not distended, normoactive bowel sounds, no guarding, no rebound, no masses. No organomegaly. MUSCULOSKELETAL: Normal ROM at all joints. No bony deformities or tenderness. No CVA tenderness. UPPER EXTREMITIES: 2+ pulses, warm, well-perfused. No cyanosis. Cap refill <2 seconds. No peripheral edema. LOWER EXTREMITIES: 2+ pulses, warm, well-perfused. No calf tenderness. No peripheral edema. NEUROLOGICAL: Normal speech, gait not observed. PSYCH: Cooperative. Good eye contact. Appropriate mood and affect. SKIN: Warm, dry, normal turgor, no rashes or lesions noted. Vital Signs Temperature 97.8 F 03/11/19 13:35 Pulse Rate 85 03/11/19 13:35 Respiratory Rate 18 03/11/19 13:35 Blood Pressure 177/118 H 03/11/19 13:35 O2 Sat by Pulse Oximetry (%) 100 03/11/19 13:06 Lab Results WBC 8.7 K/mm3 (4.0-10.0) 03/11/19 11:20 RBC 3.69 M/mm3 (4.00-5.60) L 03/11/19 11:20 Hgb 11.6 GM/dL (11.7-16.9) L 03/11/19 11:20 Hct 33.8 % (35.4-49) L 03/11/19 11:20 MCV 91.8 fl (80-96) 03/11/19 11:20 MCHC 34.4 g/dl (32.0-35.9) 03/11/19 11:20 RDW 15.1 % (11.9-15.9) 03/11/19 11:20 Plt Count 268 K/MM3 (134-434) 03/11/19 11:20 Sodium 137 mmol/L (136-145) 03/11/19 11:20 Potassium 4.4 mmol/L (3.5-5.1) 03/11/19 11:20 Chloride 99 mmol/L (98-107) 03/11/19 11:20 Carbon Dioxide 28 mmol/L (21-32) 03/11/19 11:20 Anion Gap 10 MMOL/L (8-16) 03/11/19 11:20 BUN 46.5 mg/dL (7-18) H 03/11/19 11:20 Creatinine 8.7 mg/dL (0.55-1.3) H* 03/11/19 11:20 Random Glucose 99 mg/dL (74-106) 03/11/19 11:20 Calcium 9.4 mg/dL (8.5-10.1) 03/11/19 11:20 Blood Type A POSITIVE 03/11/19 11:20 Antibody Screen Negative 03/11/19 11:20 INR 1.01 (0.83-1.09) 03/11/19 11:20 Left arm AV fistula revised last week. Was functioning well but is thrombosed now. Will need thrombectomy and venogram,. possible stenting.
--- NOTE | 2019-03-11 14:17 | EKG ---
Test Reason : Blood Pressure : / mmHG Vent. Rate : 086 BPM Atrial Rate : 086 BPM P-R Int : 178 ms QRS Dur : 102 ms QT Int : 398 ms P-R-T Axes : 066 -42 091 degrees QTc Int : 476 ms NORMAL SINUS RHYTHM LEFT AXIS DEVIATION CANNOT RULE OUT INFERIOR INFARCT , AGE UNDETERMINED POOR R WAVE PROGRESSION ABNORMAL ECG WHEN COMPARED WITH ECG OF 04-MAR-2019 19:53, NO SIGNIFICANT CHANGE WAS FOUND Confirmed by ANGEL CORTES MD ([id number]) on 03/11/2019 2:17:40 PM Referred By: Confirmed By:ANGEL CORTES MD
[2019-03-11] MEDS ORDERED: MIDAZOLAM HCL 2 MG/2 ML SINGLE DOSE VIAL ONE ×2 (15:18→21:42)
[2019-03-11] MEDS ORDERED: PROPOFOL 20 ML ONE ×2 (15:19→21:18)
[2019-03-11] MEDS ORDERED: LIDOCAINE HCL/PF 2% SDV 5ML VIAL ONE (15:19)
[2019-03-11] MEDS ORDERED: LIDOCAINE HCL 1%, 10 MG/ML (20ML VIAL) ONE (15:32)
[2019-03-11] MEDS ORDERED: HEPARIN NA (PORCINE) 5,000 UNITS/ML 1ML VIAL ONE ×2 (15:32→21:41)
[2019-03-11] MEDS ORDERED: BACITRACIN 15 GM TUBE TOPICAL OINTMENT ONE (15:37)
[2019-03-11] MEDS ORDERED: ceFAZolin SODIUM 1 GM VIAL ONE ×2 (15:47→21:06)
[2019-03-11] MEDS ORDERED: ONDANSETRON 4 MG/2 ML VIAL IVPUSH PRN (20:55)
[2019-03-11] MEDS ORDERED: SODIUM CHLORIDE 0.9% P/F 10 ML VIAL IJ ONE (21:06)
[2019-03-11] MEDS ORDERED: ceFAZolin SODIUM 1 GM VIAL IVPB ONE (21:08)
[2019-03-11] MEDS ORDERED: LIDOCAINE HCL 1%, 10 MG/ML (20ML VIAL) ID ONE (21:35)
[2019-03-11] MEDS ORDERED: HEPARIN NA (PORCINE) 5,000 UNITS/ML 1ML VIAL IV ONE (22:54)
--- NOTE | 2019-03-11 23:09 | OP ---
Operative Note - Note: Operative Date: 03/11/19 Pre-Operative Diagnosis: Thrombosed AV fistula left arm Operation: Open thrombectomy left arm AV fistula. Venogram. Placement 6 mm x 5 cm Viabahn stent. Pacement 8 mm x 60 mm LifeStar stent Findings: Thrombus in fistula. Arterial inflow without stenosis. Outflow vein severely stenoses at site of recent venous anastomosis Basilic vein patent in upper arm Implants: 6 mm x 5 cm Viabahn. 8 mm x 60 mm LifeStar stent Post-Operative Diagnosis: Same as Pre-op Surgeon: Bryce Burns Anesthesiologist/FUR DRY CLEANER: Ricci Daigle Anesthesia: Fractional
[2019-03-11] MEDS ORDERED: METOPROLOL TARTRATE 5 MG/5 ML VIAL ONE (23:18)
[2019-03-11] MEDS: METOPROLOL TARTRATE 5 MG/5 ML VIAL IVPUSH ONE (23:26)
[2019-03-11] MEDS ORDERED: oxyCODONE HCL 5 MG TABLET PO PRN (23:31)
[2019-03-11] MEDS ORDERED: ACETAMINOPHEN 325 MG TABLET (FP) PO PRN (23:31)
[2019-03-12] MEDS: METOPROLOL TARTRATE 5 MG/5 ML VIAL IVPUSH ONE (07:37)
[2019-03-12 09:45] VITALS: TEMP 98.2
[2019-03-12] MEDS ORDERED: ISOSORBIDE MONONITRATE 30 MG TAB.SR.24H (FP) PO SCH (10:00)
[2019-03-12] MEDS ORDERED: amLODIPine BESYLATE 10 MG TABLET (FP) PO SCH (10:00)
[2019-03-12] MEDS ORDERED: CARVEDILOL 12.5 MG TABLET (FP) PO SCH (10:00)
[2019-03-12] MEDS ORDERED: FUROSEMIDE 20 MG TABLET (FP) PO SCH (10:00)
[2019-03-12] MEDS: SEVELAMER CARBONATE 800 MG TAB (FP) PO SCH ×2 (12:04→13:44)
[2019-03-12 12:54] VITALS: PULSE 79
--- NOTE | 2019-03-12 12:58 | OP ---
DATE OF OPERATION: 03/11/2019 SURGEON: Bryce Paz MD PROCEDURE: Open thrombectomy, left arm, arteriovenous fistula venogram, placement of stents. PREOPERATIVE DIAGNOSIS: Thrombosed arteriovenous fistula. POSTOPERATIVE DIAGNOSIS: Thrombosed arteriovenous fistula with stenosis of venous outflow. ANESTHESIA: Fractional. ANESTHESIOLOGIST: Ricci Daigle MD OPERATIVE FINDINGS: The left arm AV fistula was thrombosed. After thrombectomy, the arterial inflow appeared normal without stenosis. The venous outflow was severely stenosed at the site of the recent revision as well as the vein from the elbow to the distal upper arm. The basilic vein proximally was normal diameter with no stenosis. OPERATIVE PROCEDURE: Following routine patient identification with side and site verification, intravenous sedation was established. The left arm was prepped with ChloraPrep. Time-out was performed. Then, 1% lidocaine was infiltrated in the distal aspect of the fistula, and a transverse incision made in the arm. Subcutaneous tissues were divided with cautery. The fistula vein was mobilized and secured with vessel loops. Patient was heparinized. Transverse incision was made in the vein, and the clamp was used to remove thrombus from the area. No. 3 and No. 4 Julianne catheters were used to perform thrombectomy from the arterial end with restorationism of arterial inflow. An angiogram of this portion was performed, which showed no evidence of stenosis or residual thrombus. The vein was filled with heparin solution. It was occluded with a vessel loop. Thrombectomy of the venous limb was carried out with removal of thrombus and return of venous back-bleeding. A circumferential sheath was placed in the vein. A venography was performed with the above noted findings. A wire was advanced through the area of stenosis. A 6 mm x 5 cm Viabahn covered stent was deployed in the area of the recent venous anastomosis, post dilated with a 6 mm balloon. Repeat imaging revealed improved diameter in this section, but the vein proximal and distal were still severely stenosed. This portion of the vein was balloon dilated with 6 mm balloons which improved the proximal vein, but not the distal portion. An 8 mm x 60 mm LifeStar stent was placed distal to the Viabahn stent with a short amount of overlap. This was post dilated with a 7 mm balloon. This improved the luminal diameter and appearance of the vein. The venotomy was then closed with running suture of 6-0 Prolene. Clamps were removed. Evaluation with a Duplex ultrasound showed pulsatile flow within the fistula. When hemostasis was adequate, the wound was closed with interrupted suture of 3-0 Vicryl and skin ariela. Sterile dressings were applied, and the patient was taken to the recovery room in stable condition. BRYCE PAZ M.D. MAGDALENA/[id number]
[2019-03-12 13:55] VITALS: BP 128/74
--- NOTE | 2019-03-12 15:04 | CONSULT ---
Consult Consult Specialty:: Nephrology Reason for Consultation:: ESRD - History of Present Illness Chief Complaint: clotted fistula History of Present Illness: Pt is a 53 year old male with pmhx of esrd, dm and htn who was sent in for clotted fistula. He follows with Dr Soria. He denies shortness of breath. He was taken for thrombectomy. I was called to arrange for HD. He tolerated HD without any complications. - History Source History Provided By: Patient, Medical Record - Past Medical History Cardio/Vascular: Yes: HTN Renal/: Yes: Renal Failure (on HD (M,W,F)), Hemodialysis Endocrine: Yes: Diabetes Mellitus - Past Surgical History Past Surgical History: Yes: AV Fistula/Graft - Alcohol/Substance Use Hx Alcohol Use: No - Smoking History Smoking history: Current every day smoker Have you smoked in the past 12 months: Yes Aproximately how many cigarettes per day: 10 Home Medications - Allergies Allergies/Adverse Reactions: Allergies Allergy/AdvReac Type Severity Reaction Status Date / Time No Known Allergies Allergy Verified 03/11/19 10:15 - Home Medications Home Medications: Ambulatory Orders Amlodipine Besylate 10 mg PO DAILY 03/04/19 Carvedilol 12.5 mg PO DAILY 03/04/19 Furosemide 60 mg PO DAILY 03/04/19 Isosorbide Mononitrate [Isosorbide Mononitrate ER] 30 mg PO DAILY 03/04/19 Sevelamer Carbonate [Renvela] 800 mg NR TID 03/04/19 Family Disease History - Family Disease History Family History: Denies Review of Systems - Review of Systems Constitutional: reports: No Symptoms Eyes: reports: No Symptoms HENT: reports: No Symptoms Neck: reports: No Symptoms Cardiovascular: reports: No Symptoms Respiratory: reports: No Symptoms Gastrointestinal: reports: No Symptoms Genitourinary: reports: No Symptoms Musculoskeletal: reports: No Symptoms, Muscle Weakness Neurological: reports: No Symptoms Endocrine: reports: No Symptoms Hematology/Lymphatic: reports: No Symptoms Psychiatric: reports: No Symptoms Physical Exam Vital Signs: Vital Signs Temperature 98.2 F 03/12/19 09:00 Pulse Rate 79 03/12/19 12:54 Respiratory Rate 18 03/12/19 14:00 Blood Pressure 128/74 03/12/19 13:54 O2 Sat by Pulse Oximetry (%) 99 03/12/19 14:00 Constitutional: Yes: Calm Eyes: Yes: Conjunctiva Clear HENT: Yes: Atraumatic Neck: Yes: Supple Cardiovascular: Yes: S1, S2 Respiratory: Yes: CTA Bilaterally Gastrointestinal: Yes: Normal Bowel Sounds, Soft Renal/: Yes: WNL Extremities: Yes: Other (fistula with thrill and bruit) Edema: No Neurological: Yes: Oriented Psychiatric: Yes: Oriented Labs: CBC, BMP 03/11/19 11:20 03/11/19 11:20 Problem List - Problems (1) ESRD (end stage renal disease) Code(s): N18.6 - END STAGE RENAL DISEASE (2) HTN (hypertension) Code(s): I10 - ESSENTIAL (PRIMARY) HYPERTENSION (3) AV graft malfunction Code(s): T82.590A - [facility] COMPL OF SURGICALLY CREATED ARTERIOVENOUS FISTULA, INIT Qualifiers: Encounter type: subsequent encounter Qualified Code(s): T82.590D - Other mechanical complication of surgically created arteriovenous fistula, subsequent encounter Assessment/Plan Current Medications Generic Name Dose Route Start Last Admin Trade Name Freq PRN Reason Stop Dose Admin Acetaminophen 325 mg 03/11/19 23:31 Tylenol - PO 03/14/19 23:30 Q4H PRN PAIN LEVEL 1-5 Amlodipine Besylate 10 mg 03/12/19 10:00 03/12/19 13:43 Norvasc - PO 10 mg DAILY JORDAN Administration Carvedilol 12.5 mg 03/12/19 10:00 Coreg - PO DAILY JORDAN Fentanyl 25 mcg 03/11/19 20:55 Sublimaze Injection - IVPUSH [id number] PRN PAIN-PACU ORDER X 4 DOSES ONLY Furosemide 60 mg 03/12/19 10:00 03/12/19 13:43 Lasix - PO 60 mg DAILY JORDAN Administration Isosorbide Mononitrate 30 mg 03/12/19 10:00 03/12/19 13:43 Imdur - PO 30 mg DAILY JORDAN Administration Ondansetron HCl 4 mg 03/11/19 20:55 Zofran Injection IVPUSH Q6H PRN NAUSEA AND/OR VOMITING Oxycodone HCl 5 mg 03/11/19 23:31 Roxicodone - PO Q4H PRN PAIN LEVEL 1-5 Sevelamer Carbonate 800 mg 03/12/19 08:00 07/27/19 13:44 Renvela - PO 800 mg TIDCM JORDAN Administration Impression 1. ESRD 2. clotted av fistula 3. htn 4. DM 5. anemia Plan - pt is s/p thrombectomy - discussed with vascular earlier today - pt tolerated DH - pt follows with Dr Soria and has HD set up as outpt Dr Carson
--- NOTE | 2019-03-12 16:24 | PN ---
HC Provider Note Provider Note: Anesthesia Post-op Note Pt seen s/p sedation for AVG stent placement Pt awake alert Pt denies n/v, urinary retention, puritis VSS no apparent anesthesia complications Kwame Dowd.
== END 2019-03-12 15:38 | disposition home or self-care (01) ==
LOC: JER 10:09 → JASUSAT 12:20 → J6S 14:10 → JASUSAT 03-12 15:38
PROVIDERS: ATTEND Surgery
PROC: 057 Upper Veins, Dilation (ICD-10-PCS; 2019-03-11)
PROC: 05CY0ZZ Extirpation of Matter from Upper Vein, Open Approach (ICD-10-PCS; principal; 2019-03-11 17:00)
DX: T82.868S Thrombosis due to vascular prosthetic devices, implants and grafts, sequela (principal); T82.858S Stenosis of other vascular prosthetic devices, implants and grafts, sequela; I12.0 Hypertensive chronic kidney disease with stage 5 chronic kidney disease or end stage renal disease; E13.22 Other specified diabetes mellitus with diabetic chronic kidney disease; N18.6 End stage renal disease; Z99.2 Dependence on renal dialysis
CPT/HCPCS: 36215; 36903; 36908; C1874; C1885; 36415; 71046-TC-FY; 76000-TC-FY; 80053; 85025; 85610; 86850; 86900; 86901; 93005; 93010; 94760; 99285-25; J1644

== ENCOUNTER 2019-04-20 12:03 | Day surgery (SDC) | payer OTHER ==
[2019-04-20 12:29] VITALS: BMI 24.9
--- NOTE | 2019-04-20 14:14 | PDOC ---
History of Present Illness - General Chief Complaint: Dialysis Shunt Problem Stated Complaint: SENT BY PCP Time Seen by Provider: 04/20/19 13:53 History Source: Patient - History of Present Illness Associated Symptoms: denies: fever/chills, nausea/vomiting, weakness Past History - Past Medical History Allergies/Adverse Reactions: Allergies Allergy/AdvReac Type Severity Reaction Status Date / Time No Known Allergies Allergy Verified 04/20/19 14:44 Home Medications: Ambulatory Orders Amlodipine Besylate 10 mg PO DAILY 03/04/19 Carvedilol 12.5 mg PO BID 03/04/19 Furosemide 60 mg PO DAILY 03/04/19 Isosorbide Mononitrate [Isosorbide Mononitrate ER] 30 mg PO DAILY 03/04/19 Sevelamer Carbonate [Renvela] 800 mg NR TID 03/04/19 Anemia: No Asthma: No Cancer: No Cardiac Disorders: No CVA: No COPD: No CHF: No Dementia: No Diabetes: Yes (NIDDM) Dialysis: Yes (M,W,F) GI Disorders: No Disorders: Yes (ESRD) HTN: Yes Hypercholesterolemia: No Liver Disease: No Seizures: No Thyroid Disease: No - Surgical History Abdominal Surgery: No Appendectomy: No Cardiac Surgery: No Cholecystectomy: No Lung Surgery: No Neurologic Surgery: No Orthopedic Surgery: (R TIBIA+FIBULA FX) - Suicide/Smoking/Psychosocial Hx Smoking History: Never smoked Have you smoked in the past 12 months: Yes Number of Cigarettes Smoked Daily: 10 'Breaking Loose' booklet given: 03/11/19 Hx Alcohol Use: No Drug/Substance Use Hx: No Substance Use Type: None Hx Substance Use Treatment: No Review of Systems - Review of Systems Constitutional: No: Chills, Fever Respiratory: No: Shortness of Breath Cardiac (ROS): No: Chest Pain ABD/GI: No: Nausea, Vomiting, Abdominal cramping *Physical Exam - Vital Signs Last Vital Signs Temp Pulse Resp BP Pulse Ox 97.6 F 83 19 126/89 100 04/20/19 12:26 04/20/19 12:26 04/20/19 12:04/20/19 12:04/20/19 12:26 - Physical Exam General Appearance: Yes: Appropriately Dressed. No: Apparent Distress HEENT: positive: Normal Voice Neck: positive: Supple Respiratory/Chest: positive: Lungs Clear, Normal Breath Sounds. negative: Respiratory Distress Cardiovascular: positive: Regular Rate, S1, S2 Gastrointestinal/Abdominal: positive: Soft. negative: Tender Integumentary: positive: Dry, Warm Neurologic: positive: Fully Oriented, Alert, Normal Mood/Affect ED Treatment Course - LABORATORY CBC & Chemistry Diagram: 04/20/19 14:26 04/20/19 14:26 - RADIOLOGY Radiology Studies Ordered: Category Date Time Status CHEST PA & LAT [RAD] Stat Radiology 04/20/19 13:56 Ordered Medical Decision Making - Medical Decision Making 04/20/19 13:57 53-year-old male, h/o history of HTN, DM, ESRD, currently receiving dialysis M/W /F, dialyzed this am via R chest permcath, sent in by Dr Burns for LUE fistula repair today. No acute medical complaints at this time See exam Due for fistula repair today Sent in by Dr Burns S/p HD this am No acute med complaints Stable and well pedro here -pre-op labs -for the OR at 4pm per d/w Dr Burns -admit *DC/Admit/Observation/Transfer Diagnosis at time of Disposition: AV fistula occlusion Qualifiers: Encounter type: initial encounter Qualified Code(s): T82.898A - Other specified complication of vascular prosthetic devices, implants and grafts, initial encounter - Discharge Dispostion Condition at time of disposition: Fair Decision to Admit order: Yes - Referrals Referrals: Anthony Hunt [Primary Care Provider] - - Patient Instructions - Post Discharge Activity
[2019-04-20] MEDS ORDERED: POVIDONE-IODINE OINTMENT 10% - 28.4 GM TUBE ONE (14:20)
[2019-04-20] MEDS ORDERED: HEPARIN NA (PORCINE) 5,000 UNITS/ML 1ML VIAL ONE (14:20)
[2019-04-20] MEDS ORDERED: PAPAVERINE HCL 30 MG/1 ML 10 ML VIAL NR ONE ×2 (14:20→16:27)
[2019-04-20] MEDS ORDERED: LIDOCAINE HCL 1%, 10 MG/ML (20ML VIAL) ONE ×2 (14:20→16:52)
--- NOTE | 2019-04-20 14:26 | HP ---
History&Physical-Symphony(std) Patient Name: KIMBERLI CARVAJAL Date of : 69 Attending Provider: Bryce Burns Date: 04/20/19 Initialization Date: 04/20/19 14:21 Limitations to Obtaining History: No Limitations Admitting History and Physical - Primary Care Physician PCP: Anthony Hunt C - Admission Chief Complaint: Clotted LUE AVF HPI: 53 yo male w/ PMHx as noted below, sent in to [facility] ED for further evaluation of his clotted L UE AVF. Patient is well known to the Vascular Surgery Service. He presented to Dr Burns's office for evaluation of his AVF and was instructed to come to ER in preparation for OR as his AVF is malfunctioning. The last time he ate or drank was 8pm last night. He received dialysis today via permacath (right chest) today on his regular dialysis day ,,. He states overall he has been feeling well and denies any new issues other than states above since his last hospital admission here.He follows with his PCP on a regular basis and denies any recent injuries to the left arm. He denies any CP, SOB, N/V/D, fever or chills. PMHX GLOBAL SALES EXECUTIVE: No: Alzheimer's, CVA, Dementia, Migraine, Multiple Sclerosis, Peripheral Neuropathy, Parkinson's, Seizure, Syncope, TIA, Vertigo, Other Cardiovascular: Yes: HTN Pulmonary: No: Asthma, Bronchitis, Cancer, COPD, O2 Dependent, Pneumonia, Previously Intubated, Pulmonary Embolus, Pulmonary Fibrosis, Sleep Apnea, Other Gastrointestinal: No: Ascites, Cancer, Constipation, Crohn's Disease, Diverticulitis, Diverticulosis, Esophageal Varices, Gastritis, GERD, GI Bleed, Hemorrhoids, Hiatal Hernia, Inflamatory Bowel Disease, Irritable Bowel Disease, Pancreatitis, Peptic Ulcer Disease, Ulcerative Colitis, Other Hepatobiliary: No: Cirrhosis, Cholelithiasis, Cholecystitis, Choledocholithiasis , Hepatitis A, Hepatitis B, Hepatitis C, Other Renal/: Yes: Renal Failure (on HD (,,)) Heme/Onc: No: Anemia, B12 Deficiency, Bleeding Disorder, Cancer, Current Chemotherapy, Current Radiation Therapy, Hemochromatosis, Hypercoaguable State, Myeloproliferative Synd, Sickle Cell Disease, Sickle Cell Trait, Thrombocytopenia, Other Smoking history: Never smoked Hx Alcohol Use: No Allergies: NKDA Home Medications: Amlodipine Besylate 10 mg PO DAILY 03/04/19 Carvedilol 12.5 mg PO DAILY 03/04/19 Furosemide 60 mg PO DAILY 03/04/19 Isosorbide Mononitrate [Isosorbide Mononitrate ER] 30 mg PO DAILY 03/04/19 Sevelamer Carbonate [Renvela] 800 mg NR TID 03/04/19 ROS onstitutional: reports: No Symptoms Eyes: reports: Blurred Vision, Other (hx of Right retinal detatchment, hx of cataracts) HENT: reports: No Symptoms Neck: reports: No Symptoms Cardiovascular: reports: No Symptoms Respiratory: reports: No Symptoms Gastrointestinal: reports: No Symptoms Genitourinary: reports: No Symptoms Breasts: reports: No Symptoms Reported Musculoskeletal: reports: No Symptoms Integumentary: reports: No Symptoms Neurological: reports: No Symptoms Endocrine: reports: Other (NIDDM-diet controlled) Hematology/Lymphatic: reports: No Symptoms Psychiatric: reports: No Symptoms Pain Intensity: 2 Last Vital Signs Temp Pulse Resp BP Pulse Ox 97.6 F 83 19 126/89 100 04/20/19 12:26 04/20/19 12:26 04/20/19 12:26 04/20/19 12:26 04/20/19 12:26 PE Constitutional: Yes: Well Nourished, No Distress, Calm Eyes: Yes: Sclera Icterus HENT: Yes: Atraumatic, Normocephalic Neck: Yes: Trachea Midline Cardiovascular: Yes: Regular Rate and Rhythm, S1, S2 Respiratory: Yes: CTA Bilaterally Gastrointestinal: Yes: Soft ...Rectal Exam: Yes: Deferred Renal/: Yes: WNL Breast(s): Yes: WNL Musculoskeletal: Yes: WNL (left UE AVF at volar forearm, with well healed scars , palpable thrill- diminished proximally, no bruit, +2 radial and ulnar pulses, arm and hand well perfused and warm to touch, Full ROM at left elbow, wrist and fingers) Edema: No Peripheral Pulses WNL: Yes Peripheral Pulses: +DP and PT Integumentary: Yes: WNL Neurological: Yes: Alert, Oriented ...Motor Strength: LUE Psychiatric: Yes: Alert, Oriented <Bijal Rodriguez - Last Filed: 04/20/19 14:56> HISTORY OF PRESENT ILLNESS PCP: ER course was notable for: (1) (2) (3) Recent travel: Family History: Social History: Smoking: Alcohol: Drugs: REVIEW OF SYSTEMS CONSTITUTIONAL: Absent: fever, chills, diaphoresis, generalized weakness, malaise, loss of appetite, weight change HEENT: Absent: rhinorrhea, nasal congestion, throat pain, throat swelling, difficulty swallowing, mouth swelling, ear pain, eye pain, visual changes CARDIOVASCULAR: Absent: chest pain, syncope, palpitations, irregular heart rate, lightheadedness , peripheral edema RESPIRATORY: Absent: cough, shortness of breath, dyspnea with exertion, orthopnea, wheezing, stridor, hemoptysis GASTROINTESTINAL: Absent: abdominal pain, abdominal distension, nausea, vomiting, diarrhea, constipation, melena, hematochezia GENITOURINARY: Absent: dysuria, frequency, urgency, hesitancy, hematuria, flank pain, genital pain MUSCULOSKELETAL: Absent: myalgia, arthralgia, joint swelling, back pain, neck pain SKIN: Absent: rash, itching, pallor HEMATOLOGIC/IMMUNOLOGIC: Absent: easy bleeding, easy bruising, lymphadenopathy, frequent infections ENDOCRINE: Absent: unexplained weight gain, unexplained weight loss, heat intolerance, cold intolerance NEUROLOGIC: Absent: headache, focal weakness or paresthesias, dizziness, unsteady gait, seizure, mental status changes, bladder or bowel incontinence PSYCHIATRIC: Absent: anxiety, depression, suicidal or homicidal ideation, hallucinations. PHYSICAL EXAMINATION: Vital Signs Temperature 97.6 F 04/20/19 12:26 Pulse Rate 83 04/20/19 12:26 Respiratory Rate 04/20/19 12:26 Blood Pressure 126/89 04/20/19 12:26 O2 Sat by Pulse Oximetry (%) 97 04/20/19 14:41 GENERAL: Awake, alert, and fully oriented, in no acute distress. HEAD: Normal with no signs of trauma. EYES: Pupils equal, round and reactive to light, extraocular movements intact, sclera anicteric, conjunctiva clear. No lid lag. EARS, NOSE, THROAT: Ears normal, nares patent, oropharynx clear without exudates. Moist mucous membranes. NECK: Normal range of motion, supple without lymphadenopathy, JVD, or masses. LUNGS: Breath sounds equal, clear to auscultation bilaterally. No wheezes, and no crackles. No accessory muscle use. HEART: Regular rate and rhythm, normal S1 and S2 without murmur, rub or gallop. ABDOMEN: Soft, nontender, not distended, normoactive bowel sounds, no guarding, no rebound, no masses. No hepatomegaly or splenomegaly. MUSCULOSKELETAL: Normal range of motion at all joints. No bony deformities or tenderness. No CVA tenderness. UPPER EXTREMITIES: 2+ pulses, warm, well-perfused. No cyanosis. No clubbing. No peripheral edema. LOWER EXTREMITIES: 2+ pulses, warm, well-perfused. No calf tenderness. No peripheral edema. NEUROLOGICAL: Cranial nerves II-XII intact. Normal speech. Normal gait. PSYCHIATRIC: Cooperative. Good eye contact. Appropriate mood and affect. SKIN: Warm, dry, normal turgor, no rashes or lesions noted, normal capillary refill. CBC,CMP WBC 6.2 K/mm3 (4.0-10.0) 04/20/19 14:26 RBC 4.43 M/mm3 (4.00-5.60) 04/20/19 14:26 Hgb 14.0 GM/dL (11.7-16.9) 04/20/19 14:26 Hct 41.1 % (35.4-49) D 04/20/19 14:26 MCV 92.8 fl (80-96) 04/20/19 14:26 MCH 31.5 pg (25.7-33.7) 04/20/19 14:26 MCHC 34.0 g/dl (32.0-35.9) 04/20/19 14:26 RDW 14.7 % (11.9-15.9) 04/20/19 14:26 Plt Count 248 K/MM3 (134-434) 04/20/19 14:26 MPV 8.3 fl (7.5-11.1) 04/20/19 14:26 Absolute Neuts (auto) 3.4 K/mm3 (1.5-8.0) 04/20/19 14:26 Neutrophils % 53.9 % (42.8-82.8) 04/20/19 14:26 Lymphocytes % 31.7 % (8-40) D 04/20/19 14:26 Monocytes % 9.5 % (3.8-10.2) 04/20/19 14:26 Eosinophils % 3.0 % (0-4.5) 04/20/19 14:26 Basophils % 1.9 % (0-2.0) 04/20/19 14:26 Nucleated RBC % 0 % (0-0) 04/20/19 14:26 Sodium 138 mmol/L (136-145) 04/20/19 14:26 Potassium 3.6 mmol/L (3.5-5.1) 04/20/19 14:26 Chloride 99 mmol/L (98-107) 04/20/19 14:26 Carbon Dioxide 31 mmol/L (21-32) 04/20/19 14:26 Anion Gap 8 MMOL/L (8-16) 04/20/19 14:26 BUN 19.2 mg/dL (7-18) H 04/20/19 14:26 Creatinine 5.3 mg/dL (0.55-1.3) H 04/20/19 14:26 Est GFR (CKD-EPI)AfAm 13.39 04/20/19 14:26 Est GFR (CKD-EPI)NonAf 11.55 04/20/19 14:26 Random Glucose 91 mg/dL (74-106) 04/20/19 14:26 Calcium 9.4 mg/dL (8.5-10.1) 04/20/19 14:26 Total Bilirubin 0.5 mg/dL (0.2-1) 04/20/19 14:26 AST 18 U/L (15-37) 04/20/19 14:26 ALT 16 U/L (13-61) 04/20/19 14:26 Alkaline Phosphatase 99 U/L (45-117) 04/20/19 14:26 Total Protein 8.8 g/dl (6.4-8.2) H 04/20/19 14:26 Albumin 4.2 g/dl (3.4-5.0) 04/20/19 14:26 Active Medications Generic Name Dose Route Start Last Admin Trade Name Freq PRN Reason Stop Dose Admin Fentanyl 50 mcg 04/20/19 14:30 Sublimaze Injection - IVPUSH [id number] PRN PAIN-PACU ORDER X 4 DOSES ONLY Ondansetron HCl 4 mg 04/20/19 14:30 Zofran Injection IVPUSH Q6H PRN NAUSEA AND/OR VOMITING Oxycodone HCl 10 mg 04/20/19 14:30 Roxicodone - PO Q4H PRN PAIN LEVEL 6-10 Promethazine HCl 12.5 mg 04/20/19 14:30 Phenergan Injection - IVPUSH Q6H PRN NAUSEA-FOR RESCUE AFTER 15 MIN ASSESSMENT/PLAN: Failed AVF left arm. Plan basilic vein fistula. <Bryce Burns - Last Filed: 04/20/19 16:17> Problem List - Problem (1) AV fistula occlusion Assessment/Plan: 53yo male with clotted LUE AVF. Plan for OR today with Dr Burns for revision/creation of Left UE AVF. Revision/Creation of L UE AVF 04/20/19 f/u Potassium NPO IVF GI PPX DVT PPX Evaluation and plan discussed with Dr Burns and agrees Code(s): T82.590A - [facility] COMPL OF SURGICALLY CREATED ARTERIOVENOUS FISTULA, INIT Qualifiers: Encounter type: initial encounter Qualified Code(s): T82.590A - Other mechanical complication of surgically created arteriovenous fistula, initial encounter Code(s): T82.898A - OTH COMPLICATION OF VASCULAR PROSTH DEV/GRFT, INIT Qualifiers: Encounter type: initial encounter Qualified Code(s): T82.898A - Other specified complication of vascular prosthetic devices, implants and grafts, initial encounter <Bijal Rodriguez - Last Filed: 04/20/19 14:56>
[2019-04-20] MEDS ORDERED: ONDANSETRON 4 MG/2 ML VIAL IVPUSH PRN (14:30)
[2019-04-20] MEDS ORDERED: oxyCODONE HCL 5 MG TABLET PO PRN ×2 (14:30→18:20)
[2019-04-20] MEDS ORDERED: PROMETHAZINE HCL 25 MG/1 ML VIAL IVPUSH PRN (14:30)
[2019-04-20 14:45] LABS: BASO % 1.9 % (0-2.0); HEMATOCRIT 41.1 % (35.4-49); LYMPH % 31.7 % (8-40); MCH 31.5 pg (25.7-33.7); MEAN CELL VOLUME 92.8 fl (80-96); MEAN PLT VOLUME 8.3 fl (7.5-11.1); MONO % 9.5 % (3.8-10.2); NEUT % 53.9 % (42.8-82.8); PLATELET COUNT 248 K/MM3 (134-434); RBC 4.43 M/mm3 (4.00-5.60); RDW 14.7 % (11.9-15.9); WHITE BLOOD COUNT 6.2 K/mm3 (4.0-10.0)
[2019-04-20 14:58] LABS: INR 0.92 (0.83-1.09); PROTHROMBIN TIME (PATIENT) 10.8 SEC (9.7-13.0)
[2019-04-20 15:10] LABS: ALBUMIN 4.2 g/dl (3.4-5.0); BILIRUBIN,TOTAL 0.5 mg/dL (0.2-1); BLOOD UREA NITROGEN 19.2 mg/dL (7-18); CALCIUM 9.4 mg/dL (8.5-10.1); CREATININE 5.3 mg/dL (0.55-1.3); POTASSIUM 3.6 mmol/L (3.5-5.1); TOT PROT 8.8 g/dl (6.4-8.2)
[2019-04-20] MEDS ORDERED: PROPOFOL 20 ML ONE ×6 (15:49→18:01)
[2019-04-20] MEDS ORDERED: MIDAZOLAM HCL 2 MG/2 ML SINGLE DOSE VIAL ONE (15:49)
[2019-04-20] MEDS ORDERED: SUCCINYLCHOLINE CHLORIDE 200 MG/10 ML SYRINGE ONE (15:51)
[2019-04-20] MEDS ORDERED: BUPIVACAINE HCL/PF 0.5% (5 MG/ML) 30 ML VIAL IJ ONE ×2 (16:31→16:34)
[2019-04-20] MEDS ORDERED: LIDOCAINE HCL 1%, 10 MG/ML (20ML VIAL) PNB ONE (16:34)
[2019-04-20] MEDS ORDERED: HEPARIN NA (PORCINE) 5,000 UNITS/ML 1ML VIAL SQ ONE (16:46)
[2019-04-20] MEDS ORDERED: BUPIVACAINE HCL/PF 0.25% (2.5MG/ML) 10 ML VIAL ONE (16:52)
--- NOTE | 2019-04-20 18:17 | OP ---
Operative Note - Note: Operative Date: 04/20/19 Pre-Operative Diagnosis: ESRD Operation: Creation AV fistula left arm. Basilic vein transposition Findings: Patent basilic vein 8-12 mm diameter. Patent brachial artery Post-Operative Diagnosis: Same as Pre-op Surgeon: Bryce Burns Research Physicist: Bijal Rodriguez Anesthesiologist/WASHING MACHINE REPAIRER: John Hi Anesthesia: Fractional Estimated Blood Loss (mls): 25
[2019-04-20] MEDS ORDERED: ACETAMINOPHEN 325 MG TABLET (FP) PO PRN (18:20)
--- NOTE | 2019-04-20 18:33 | SURG ---
Surgery Financial Dealers Note Financial Dealers: Bijal Rodriguez PA-C Date of Service: 04/20/19 Diagnosis: End stage Renal Disease on Hemodialysis Procedure: Creation AV fistula left arm. Basilic vein transposition I was present for the entirety of the operative procedure. For further detail, please refer to operative report. Visit type - Case Type Case Type: ED Admission - Emergency Emergency Visit: Yes Care time: The patient presented to the Emergency Department on the above date and was hospitalized for further evaluation of their emergent condition. - New patient This patient is new to me today: Yes Date on this admission: 04/20/19
--- NOTE | 2019-04-20 19:50 | OP ---
DATE OF OPERATION: 04/20/2019 SURGEON: Bryce Paz MD CODING FILE CLERK: ILENE Watkins PROCEDURE: Creation of arteriovenous fistula, left arm, with basilic vein transposition. PREOPERATIVE DIAGNOSIS: End-stage renal disease. POSTOPERATIVE DIAGNOSIS: End-stage renal disease. ANESTHESIA: Fractional. ANESTHESIOLOGIST: John Hi MD OPERATIVE FINDINGS: The basilic vein in the left upper arm was patent with a diameter between 8 and 12 mm. The brachial artery in the distal upper arm was patent with a diameter of approximately 5 mm. OPERATIVE PROCEDURE: Following routine patient identification with side and site verification, intravenous sedation was established. The left arm was prepped with ChloraPrep. Timeout was performed. A mixture of 1% lidocaine and 0.5% Marcaine was infiltrated subcutaneously over the basilic vein which had been mapped preoperatively with duplex ultrasound. Incision was made over the vein, and the subcutaneous tissue was divided with cautery. The vein was identified distally, and distal side branches were ligated and divided. The vein was incised and distended with heparin and papaverine solution throughout the procedure. The vein was then exposed proximally with division of the overlying tissue and fascia. Care was taken not to damage the musculocutaneous nerve next to the vein. All side branches of the vein were ligated and divided. The vein was elevated from its bed for the length of the incision. A tunneler was then passed between the proximal and distal ends of the incision over the anterior aspect of the arm. The vein was marked to prevent twisting and was divided distally and then passed through the tunnel with care not to twist it. The distal incision was then deepened through the muscle fascia, and the brachial artery was secured. Side branches were ligated with silk ties and divided. The artery was then occluded with vessel loops and opened on exposed surface with a 6-mm arteriotomy. The end of the vein was spatulated and anastomosed to the side of the artery with running suture of 6-0 Prolene. Prior to completion of the suture line, the artery was allowed to back bleed and flush, and the vein was flushed. Suture line was completed and all vessels released. There was good flow through the anastomosis with a palpable thrill in the vein. Wounds were then irrigated and closed with interrupted suture of 3-0 Vicryl in subcutaneous tissues and skin ariela. Sterile dressings were applied, and the patient was taken to the recovery room in stable condition. BRYCE PAZ M.D. MAGDALENA/[id number]
[2019-04-21 00:12] VITALS: BP 160/96; PULSE 80; TEMP 97.5
--- NOTE | 2019-04-21 12:27 | EKG ---
Test Reason : Blood Pressure : / mmHG Vent. Rate : 077 BPM Atrial Rate : 077 BPM P-R Int : 166 ms QRS Dur : 098 ms QT Int : 422 ms P-R-T Axes : 059 -46 113 degrees QTc Int : 477 ms NORMAL SINUS RHYTHM LEFT AXIS DEVIATION MINIMAL VOLTAGE CRITERIA FOR LVH, MAY BE NORMAL VARIANT INFERIOR INFARCT , AGE UNDETERMINED POSSIBLE ANTERIOR INFARCT (CITED ON OR BEFORE 11-MAR-2019) T WAVE ABNORMALITY, CONSIDER LATERAL ISCHEMIA ABNORMAL ECG WHEN COMPARED WITH ECG OF 11-MAR-2019 11:30, NO SIGNIFICANT CHANGE WAS FOUND Confirmed by RONDA BAIRES MD ([id number]) on 04/21/2019 12:26:40 PM Referred By: Confirmed By:RONDA BAIRES MD
== END 2019-04-20 22:15 | disposition home or self-care (01) ==
LOC: JER 12:03 → JASUSAT 14:15 → J5S 19:48 → JASUSAT 22:15
PROVIDERS: ATTEND Surgery
DX: T82.590A Other mechanical complication of surgically created arteriovenous fistula, initial encounter (principal); T82.898A Other specified complication of vascular prosthetic devices, implants and grafts, initial encounter; I12.0 Hypertensive chronic kidney disease with stage 5 chronic kidney disease or end stage renal disease; N18.6 End stage renal disease; Z99.2 Dependence on renal dialysis; Y82.8 Other medical devices associated with adverse incidents; Y92.9 Unspecified place or not applicable; G30.9 Alzheimer's disease, unspecified; F02.80 Dementia in other diseases classified elsewhere, unspecified severity, without behavioral disturbance, psychotic disturbance, mood disturbance, and anxiety; G20 Parkinson's disease; G35 Multiple sclerosis; G62.9 Polyneuropathy, unspecified; G40.909 Epilepsy, unspecified, not intractable, without status epilepticus; J44.9 Chronic obstructive pulmonary disease, unspecified; G47.30 Sleep apnea, unspecified; Z99.81 Dependence on supplemental oxygen; Z86.73 Personal history of transient ischemic attack (TIA), and cerebral infarction without residual deficits; Z86.711 Personal history of pulmonary embolism
CPT/HCPCS: 36415; 71046-TC-FY; 80053; 85025; 85610; 86850; 86900; 86901; 93005; 93010; 94760; 99284-25; J1644

== ENCOUNTER 2022-07-24 04:09 | Day surgery (SDC) | payer OTHER ==
[2022-07-23 12:23] VITALS: BMI 24.4
[2022-07-24] MEDS ORDERED: FENTANYL CITRATE/PF 50 MCG/ML VIAL ONE ×2 (16:18→16:38)
[2022-07-24] MEDS ORDERED: PROPOFOL 20 ML ONE ×3 (16:19→16:49)
[2022-07-24] MEDS ORDERED: MIDAZOLAM HCL 2 MG/2 ML SINGLE DOSE VIAL ONE (16:19)
[2022-07-24] MEDS ORDERED: VANCOMYCIN 1,000 MG VIAL (RESTRICTED TO ID ONLY) ONE (16:23)
[2022-07-24] MEDS ORDERED: VANCOMYCIN 1 GM in NS (PRE-DOCKED) 1,000 MG/250 ML IVPB ONE (16:25)
[2022-07-24] MEDS ORDERED: LIDOCAINE HCL 1%, 10 MG/ML (20ML VIAL) NR ONE ×2 (16:28)
[2022-07-24] MEDS ORDERED: SODIUM CHLORIDE 1,000 ML IV SCH (17:00)
[2022-07-24] MEDS ORDERED: ONDANSETRON 4 MG/2 ML VIAL IVPUSH PRN (17:00)
[2022-07-24] MEDS ORDERED: FENTANYL CITRATE/PF 50 MCG/ML VIAL IVPUSH PRN (17:00)
[2022-07-24] MEDS ORDERED: ACETAMINOPHEN 325 MG TABLET (FP) PO PRN (17:05)
[2022-07-24 18:06] VITALS: RESP 18
[2022-07-24 19:00] VITALS: BP 120/60; PULSE 92; TEMP 98.2
== END 2022-07-24 19:15 | disposition home health service (06) ==
LOC: JASU-SURG 04:09
PROVIDERS: ATTEND Surgery
PROC: 0Y6M0ZF Detachment at Right Foot, Partial 5th Ray, Open Approach (ICD-10-PCS; 2022-07-24)
PROC: 0Y6M0ZD Detachment at Right Foot, Partial 4th Ray, Open Approach (ICD-10-PCS; principal; 2022-07-24 16:00)
DX: E11.52 Type 2 diabetes mellitus with diabetic peripheral angiopathy with gangrene (principal); I96 Gangrene, not elsewhere classified
CPT/HCPCS: 88305-TC; 88311-TC; 94760